=== PATIENT | male | born 2000 | race Caucasian/White ===

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

== ENCOUNTER → 2022-01-03 | Outpatient (CLI) | payer OTHER, SELFPAY | END | disposition home or self-care (01) | PROVIDERS: PCP Family Medicine; Visit Provider Family Medicine | DX: Z20.822 Contact with and (suspected) exposure to COVID-19 (principal) | CPT/HCPCS: 87635; U0003; U0005 ==

== ENCOUNTER 2022-07-12 08:30 | Outpatient (RCR) | payer OTHER, SELFPAY ==
--- NOTE | 2022-06-24 08:24 | HP.PTEVAL_ITS ---
Patient's Visit Information NANCY BAH is a 21 year old M referred to Physical Therapy by Dr. Cal Leonardo MD with a diagnosis of L shoulder pain. Date of Evaluation: 06/24/22 Physical Therapist: Anton Ulloa, PT, ATC - Visit Plan Frequency: 2-3x /Week Duration: 3-6 weeks Plan: L shoulder stretching, rot cuff strengthening, scap stab ex's, UBE, and HEP. - Subjective Pt reports he has had L shoulder pain for approximately one month. Pt reports he has been weight lifting and believes this may have caused his pain. Pt reports he is unaware of anything that provokes his pain. Pt notes he has sleep difficulty secondary to his L UE pain. Pt notes his arm will go to sleep on him at times and he has to shake it out in order for it to feel better. Pt is R hand dominant. Pt reports he has not had any Dx tests at this time. Pt denies any PMHx of L shoulder pain. Pt reports he usually sleeps on his back with his arms at his side. Pt reports if he rolls on his side, the pain will get worse. 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 3/10 pain while sitting here at rest, 6/10 pain at worst (when he wakes up in the morning). Pt does notes a Hx of c/s pain which he has now. - Pain L shoulder Pain Intensity (Out of 10): 3 Pain Intensity Range: 6 - Objective Neuro: B UE sensation is WNL to light touch. B bicipital reflex= 2/3. Palpation: Painful along the LHB tendon. No obvious deformity. ROM: R shoulder flex= 160, abd= 180, ER= 40, IR WNL; L shoulder flex= 145, abd= 180, ER= 25, IR= WNL. MMT: R shoulder flex= 19, abd= 27, ER= 20, IR= 18 #F ; L shoulder flex= 14, abd= 22, ER= 17, IR= 18 #F. Special tests: Pos HK, pos speeds - Balance/Special Test Scores Quick DASH Score: 22.7250 - Goals Goal 1:: Decrease L shoulder pain x 50% to aid with sleep Goal Time Frame: 4-6 Weeks Goal 2:: Increase L shoulder strength x 3-5#F throughout to aid with IADL's Goal Time Frame: 4-6 Weeks Goal 3:: Increase L shoulder flexion and ER ROM x 5-10 degrees to aid with overhead lifting activity Goal Time Frame: 4-6 Weeks Goal 4:: I with HEP Goal Time Frame: 4-6 Weeks - Rehabilitation Potential Physical Therapy Diagnosis: Pt has L shoulder pain, weakness, and limited ROM secondary to L biceps tendonitis Rehabilitation Potential: Good - Anticipated Interventions Patient/Client Instruction: Educate patient on: Condition, Plan of Care For the Purpose of:: To improve self management Therapeutic Exercise to Include: Strength training, Flexibilty training, Passive ROM, Active ROM, Scapular Strength/Stabilization For the Purpose of:: To decrease pain, To increase ROM, To improve muscle performance and motor function Cryotherapy (ice pack, ice massage): Yes For the Purpose of:: To decrease pain Thank you for the opportunity to evaluate your patient. For Medicare and Medicare HMO plans, please review the plan of care and approve it. It will need to be FAXED BACK to us at [phone] for Medicare purposes. For Medicare only, by signing this I certify the plan of care. Please let me know if there are questions or concerns regarding this plan of care. Physician Signature: Date:
== END 2022-07-12 19:00 | disposition home or self-care (01) ==
LOC: PT 08:30
PROVIDERS: PCP Family Medicine; Referring Provider Family Medicine; Visit Provider Family Medicine
DX: M25.512 Pain in left shoulder (principal)
CPT/HCPCS: 97110; 97161

== ENCOUNTER → 2022-07-28 | Outpatient (CLI) | payer OTHER, SELFPAY ==
[2022-07-28 11:34] LABS: ALB/GLOB Ratio 1.1 RATIO (0.9-2.4); AST(SGOT) 34 U/L (15-37); Alanine Aminotransfer ALT/SGPT 43 U/L (16-61); Albumin, Serum 3.9 g/dL (3.2-5.0); Alkaline Phosphatase 114 U/L (45-117); Anion Gap 4 (5-15); BUN 22 mg/dL (7-18); BUN/Creat Ratio 18.3 RATIO (10-20); CRP < 2.90 mg/L (0.0-3.0); Calcium,Total 8.9 mg/dL (8.5-10.1); Chloride 105 mmol/L (98-107); EST Glomerular Filtration Rate 82 mL/min (>60); Est Glom Filt Rate - Afr Amer 99 mL/min (>60); Globulin 3.4 g/dL (2.2-4.2); Glucose 95 mg/dL (74-106); Protein, Total 7.3 g/dL (6.4-8.2); Sodium Level 139 mmol/L (136-145)
[2022-07-28 11:39] LABS: Absolute Lymphocyte Count 1.18 X10^3/uL (0.83-4.51); Absolute Neutrophil Count 2.9 X10^3/uL (2.0-7.7); Basophil# 0.02 X10^3/uL; Basophil% 0.4 % (0-1); Eosinophil# 0.21 X10^3/uL; Eosinophils% 4.3 % (0-5); Hematocrit 43.1 % (40-54); Hemoglobin 14.8 g/dL (13.0-16.5); Lymphocyte # 1.18 X10^3/ul (0.83-4.51); Lymphocyte % 24.4 % (19-41); Mean Corp Hgb Conc 34.3 g/dL (32-36); Mean Corpuscular Hgb 30.2 pg (27.0-32.0); Mean Platelet Vol. 8.4 fl (6.2-12.0); Monocyte# 0.48 X10^3/uL; Monocyte% 9.9 % (0-10); NRBC Flagged by Analyzer 0 % (0-5); Neutrophil # 2.93 X10^3/uL (2.7-7.7); Neutrophil % 60.8 % (47-70); Platelet Count 287 K/mm3 (150-450); RBC Distribution Width CV 12.8 % (11.6-14.6); RBC Distribution Width SD 40.2 fl (35.1-43.9); White Blood Count 4.8 K/mm3 (4.4-11.0)
[2022-07-28 11:43] LABS: Erythrocyte Sedimentation Rate 9 mm/hr (0-20)
[2022-07-29 16:09] LABS: Endomysial Antibody IgA Negative (Negative)
[2022-07-29 20:31] LABS: Immunoglobulin A 239 mg/dL (90-386); t-Transglutaminase IgA <2 U/mL (0-3)
[2022-08-02 11:34] LABS: Calprotectin, Stool 38 ug/g (0-120)
== END | disposition home or self-care (01) ==
PROVIDERS: PCP Family Medicine; Referring Provider Nurse Practitioner Adult Health; Visit Provider Nurse Practitioner Adult Health
DX: K92.1 Melena (principal); K58.9 Irritable bowel syndrome, unspecified
CPT/HCPCS: 36415; 80053; 82784; 83516; 83630; 83993; 85025; 85652; 86140; 86255

== ENCOUNTER 2022-10-14 05:26 | Day surgery (SDC) | payer OTHER, SELFPAY ==
[2022-10-14] VITALS (10 sets, daily range): BP systolic 89–145; BP diastolic 37–79; PULSE 68–97; RESP 12–18; TEMP 36.6–37; O2SAT 97–100; BMI 28.4
[2022-10-14] MEDS: Lactated Ringers 1,000 ML 15 ML IV (05:57)
--- NOTE | 2022-10-14 06:30 | COLBX_PTH ---
PATIENT: NANCY BAH LOC: EN U#:[id number] AGE/SX: 22/M ROOM: RE10/14/[address]: Dr. Cristóbal Box DO : 2000 BED: DIS: 10/14/2022 SPEC #: [id number] RECD: 10/14/22 12:20 STATUS: PEDRO LUIS REQ #: [id number] JUAN: 10/14/22 06:[address]: Cristóbal Box DEPT: SURGICAL PATHOLOGY RECD BY: Magali Patel ENTERED: 10/14/22 12:20 SP TYPE: COLON BX OTHR DR: Dr. Cal Leonardo MD Tissues: Ileum, NOS Procedures: Surgery Specimen Level IV HEADER OPERATION: Colonoscopy (MAC), hemorrhoid banding PRE-OP DIAGNOSIS: Hemorrhoids, hematochezia TISSUE SUBMITTED: Terminal ileum MICROSCOPIC DIAGNOSIS Terminal ileum, biopsy: Fragments of small intestinal mucosa, no pathologic diagnosis. SJ:toi 10/17/2022 MICROSCOPIC DESCRIPTION Slides are reviewed. GROSS DESCRIPTION Received in fixative is one container labeled with the patient's name and designated terminal ileum. The specimen consists of two irregular fragments of light larsen soft tissue that in aggregate measure 0.8 x 0.4 x 0.1 cm. The specimen is totally submitted in one cassette. / NICK:toi 10/14/2022 TC:4 CPT: 78861
--- NOTE | 2022-10-14 06:34 | PCM.HP.BLA ---
History and Physical Date of Admission: 10/14/22 22 M who presents to the office today to establish for hematochezia. Pt and his father state here for hemorrhoids Began in 03/2022, red blood on toilet paper, in toilet bowl and mixed with stool, was straining at the onset. Daily BM. Occas tenesmus. Preparation H helped initially feels external hemorrhoids has blood in toilet with BMs weight lifting and body building No constipation, no abdominal pain Intentional weight loss of 90 lbs 1.5 yrs ago. 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 Uses protein powder. Gassy. bloating Avoids milk, processed cheeses or gets diarrhea. Great-grandfather had colon cancer age 88. 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 138) Smoking Status: Never smoker Assessment and Plan Assessment and Plan (1) Hemorrhoids: (2) Hematochezia: ?Status:?Chronic ? ? ? Orders: Orders Comprehensive Metabolic Profil 07/28/22 K92.1 - Melena ? CRP 07/28/22 K92.1 - Melena ? CBC W/Diff, Automated 07/28/22 K92.1 - Melena ? Erythrocyte Sed Rate 07/28/22 K92.1 - Melena ? Calprotectin, Stool 07/28/22 K92.1 - Melena ? Stool Lactoferrin/WBC 07/28/22 K58.9 - Irritable bowel syndrome without diarrhea, K92.1 - Melena ? Celiac Disease Profile 07/28/22 K92.1 - Melena ? Miscellaneous Lab Procedure 07/28/22 K92.1 - Melena ? Colonoscopy 10/14/22 K92.1 - Melena ? I have examined the patient and the H&P has been reviewed. There are no clinical changes since date of exam.
--- NOTE | 2022-10-14 07:11 | OP.COLON_ITS ---
Patient Name: Ivan Barros Procedure Date: 10/14/2022 6:20 AM Date of : 2000 Age: 22 Procedure: Colonoscopy Indications: Hematochezia Providers: Cristóbal Box DO Referring MD: Cristóbal Box DO Medicines: Monitored Anesthesia Care Patient Profile: This is a 22 year old male. Refer to note in patient chart for documentation of history and physical. Last Colonoscopy: none. The patient's first colonoscopy is today. Complications: No immediate complications. Procedure: Pre-Anesthesia Assessment: - Prior to the procedure, a History and Physical was performed, and patient medications and allergies were reviewed. The patient is competent. The risks and benefits of the procedure and the sedation options and risks were discussed with the patient. All questions were answered and informed consent was obtained. Patient identification and proposed procedure were verified by the physician in the pre-procedure area. Mental Status Examination: alert and oriented. Airway Examination: normal oropharyngeal airway and neck mobility. CV Examination: normal. Prophylactic Antibiotics: The patient does not require prophylactic antibiotics. Prior Anticoagulants: The patient has taken no previous anticoagulant or antiplatelet agents. After reviewing the risks and benefits, the patient was deemed in satisfactory condition to undergo the procedure. The anesthesia plan was to use monitored anesthesia care (MAC). Immediately prior to administration of medications, the patient was re-assessed for adequacy to receive sedatives. The heart rate, respiratory rate, oxygen saturations, blood pressure, adequacy of pulmonary ventilation, and response to care were monitored throughout the procedure. The physical status of the patient was re-assessed after the procedure. After I obtained informed consent, the scope was passed under direct vision. Throughout the procedure, the patient's blood pressure, pulse, and oxygen saturations were monitored continuously. The Colonoscope was introduced through the anus and advanced to the terminal ileum. The colonoscopy was performed without difficulty. The patient tolerated the procedure well. The quality of the bowel preparation was good. Scope In: 6:41:02 AM Scope Withdrawal Time 0 hours 8 minutes 58 seconds Scope Out: 6:56:39 AM Total Procedure Duration Time 0 hours 15 minutes 37 seconds Findings: An anal fissure was found on perianal exam. Hemorrhoids were found on perianal exam. The colon (entire examined portion) appeared normal. A scattered area of the terminal ileum was congested. Biopsies were taken with a cold forceps for histology. Verification of patient identification for the specimen was done. Estimated blood loss was minimal. Non-bleeding internal hemorrhoids were found during retroflexion. The hemorrhoids were Grade II (internal hemorrhoids that prolapse but reduce spontaneously). A hemorrhoid was isolated with anoscopy. The ShortShot ligator was positioned over the hemorrhoid at the left lateral position. Suction was applied and one rubber band was placed over the hemorrhoid. This was checked to make certain that the muscularis was free of the band. Post-banding digital rectal exam showed band in good position. There were no complications. Impression: - Anal fissure found on perianal exam. - Hemorrhoids found on perianal exam. - The entire examined colon is normal. - Congested mucosa in the terminal ileum. Biopsied. - Non-bleeding internal hemorrhoids. Banded. Recommendation: - Use Metamucil capsules, 1 capsule PO daily. - Repeat colonoscopy is recommended for surveillance. The colonoscopy date will be determined after pathology results from today's exam become available for review. - Continue present medications. Procedure Code(s): --- Professional --- 45234, Colonoscopy, flexible; with band ligation(s) (eg, hemorrhoids) 67987, Colonoscopy, flexible; with biopsy, single or multiple CPT copyright 2017 [employer]. All rights reserved. The codes documented in this report are preliminary and upon surgical coder review may be revised to meet current compliance requirements. Cristóbal Box DO 10/14/2022 7:10:34 AM This report has been signed electronically. Number of Addenda: 0 Note Initiated On: 10/14/2022 6:20 AM
--- NOTE | 2022-10-14 07:12 | OP.CCLET_ITS ---
10/14/2022 Cal Leonardo MD [address] [place] [address] Re : Colonoscopy procedure for [facility] Dear Dr. Leonardo This procedure was performed on Friday, October 14, 2022. My impressions and recommendations are as follows: Impressions : - Anal fissure found on perianal exam. - Hemorrhoids found on perianal exam. - The entire examined colon is normal. - Congested mucosa in the terminal ileum. Biopsied. - Non-bleeding internal hemorrhoids. Banded. Recommendations : - Use Metamucil capsules, 1 capsule PO daily. - Repeat colonoscopy is recommended for surveillance. The colonoscopy date will be determined after pathology results from today's exam become available for review. - Continue present medications. My findings are described in the full procedure note, which is enclosed. If I can be of further assistance, please feel free to contact me at . Sincerely, Cristóbal Box, 10/14/2022 7:10:34 AM This report has been signed electronically.
== END 2022-10-14 08:20 | disposition home or self-care (01) ==
LOC: EN 05:29 → AC 05:29
PROVIDERS: PCP Family Medicine; Referring Provider Internal Medicine Gastroenterology; Visit Provider Internal Medicine Gastroenterology
PROC: 0DJD8ZZ Inspection of Lower Intestinal Tract, Via Natural or Artificial Opening Endoscopic (ICD-10-PCS; CPT 45378; principal; 2022-10-14 06:25)
DX: K64.1 Second degree hemorrhoids (principal); K60.2 Anal fissure, unspecified; K92.1 Melena
CPT/HCPCS: 45380; 45398; 88305; J7120; J2405

== ENCOUNTER → 2022-12-23 | Outpatient (CLI) | payer OTHER, SELFPAY ==
[2022-12-23 17:58] LABS: Absolute Lymphocyte Count 1.13 X10^3/uL (0.83-4.51); Absolute Neutrophil Count 6.7 X10^3/uL (2.0-7.7); Basophil# 0.03 X10^3/uL; Basophil% 0.4 % (0-1); Eosinophil# 0.08 X10^3/uL; Eosinophils% 0.9 % (0-5); Hematocrit 48.6 % (40-54); Hemoglobin 16.3 g/dL (13.0-16.5); Lymphocyte # 1.13 X10^3/ul (0.83-4.51); Lymphocyte % 13.2 % (19-41); Mean Corp Hgb Conc 33.5 g/dL (32-36); Mean Corpuscular Hgb 29.5 pg (27.0-32.0); NRBC Flagged by Analyzer 0 % (0-5); Neutrophil # 6.69 X10^3/uL (2.7-7.7); Neutrophil % 78.3 % (47-70); Platelet Count 283 K/mm3 (150-450); RBC Distribution Width CV 13.4 % (11.6-14.6); RBC Distribution Width SD 43.4 fl (35.1-43.9); Red Blood Count 5.52 M/mm3 (4.6-6.2); White Blood Count 8.6 K/mm3 (4.4-11.0)
[2022-12-23 18:05] LABS: PSA,Total- Diagnostic 0.28 ng/mL (0.0-4.0)
== END | disposition home or self-care (01) ==
LOC: MFPLAB 14:12
PROVIDERS: PCP Family Medicine; Visit Provider Family Medicine
DX: F55.3 Abuse of steroids or hormones (principal)
CPT/HCPCS: 36415; 84153; 84402; 84403; 85025

== ENCOUNTER 2023-05-02 20:19 | Emergency (ER) | payer OTHER, SELFPAY ==
[2023-05-02 20:19] VITALS: BP 146/62; PULSE 101; RESP 16; TEMP 36.9; O2SAT 100
[2023-05-02 20:21] VITALS: BMI 28.8
--- NOTE | 2023-05-02 20:26 | ED.RN ---
While triaging pt, pt grandfather heard that pt was doing steroids. Pt grandfather states that he is legal power of managing attorney and is on a signed list to be with the patient. Pt verifies that he is legal guardian.
[2023-05-02 20:31] VITALS: BP 136/62; PULSE 95; RESP 16; O2SAT 97
--- NOTE | 2023-05-02 20:34 | ED.RN ---
While triaging pt, grandfather is in room. Grandfather aggressive with pt about illegal steroid use. This nurse requested that grandfather keep calm, grandfather continues to antagonize pt about steroid use and how he is getting them. Informed grandfather he would not be allowed back with pt while in this state.grandfather reports that he is legal guardian and has a signed letter from Dr. Leonardo that he is supposed to be with pt at all times. Verified with pt that he is legal guardian and also informed pt he would not be allowed back and reason why. Grandfather states he is calling police to allow him back. Grandfather then went to waiting room to make a phone call, talking loudly and aggressively. He then begins to tell this nurse that you need to call Misa and see who has cared for him since he has been born. Twice asked grandfather to please sit and try to calm self, attempted to voice understanding and frustration, and explained why he could not be with patient in current state. He then repeatedly asks for this nurse to page Dr. Scanlon, explained reason why it was not appropriate to page him for this, he then states you need to call him for when I keel over because I am so mad. Advised grandfather that if he did in fact have an emergency he would be treated as appropriate. He then walks outside, stating he may or may not cool off. Officer Jose then comes to triage desk, explained situation to Officer Jose and Officer Jose spoke with grandfather outside. Explained to grandfather that if he is able to be in a calm state he would be allowed back with patient.
--- NOTE | 2023-05-02 20:49 | EX.ED.DYSGE1 ---
HPI History of Present Illness Chief Complaint: General Illness Informant: patient and spouse/S.O. Narrative Narrative: Patient presents secondary to fever, body aches, and anabolic steroid use. He reportedly had tapered himself off of his prescribed medications and has been taking anabolic steroids for the past 5 weeks or so. He was taking Anadrol 50 mg tabs twice daily. His last dose was 2 days ago. He states he was told while he was on that medication he did not take his other prescriptions and should not take any pain medication. Today he took some Tylenol and felt worse after this and was concerned about his liver. He was noted to have a temperature of 101.3 at home. He has had some congestion with sinus pressure and a mild cough as well. He denies vomiting or diarrhea. [facility] Medical History Adenopathy, hilar ADHD Alcohol use Anxiety Asthma Back pain Chronic pain Cystic fibrosis carrier Depression Enuresis Hematochezia Hx of bipolar disorder Injury of head and neck Loss of consciousness Mood disorder Non-smoker Shoulder pain Home Medications albuterol sulfate 90 mcg/actuation aerosol inhaler 2 puff inhalation Q4H PRN PRN Bronchospasm 08/21/21 [History Last Taken Unknown] bupropion HCl 150 mg 24 hr tablet, extended release 150 mg PO DAILY 08/21/21 [History Last Taken 10/14/22 150 mg] dexmethylphenidate 10 mg tablet 20 mg PO DAILY 08/21/21 [History Last Taken 10/14/22 20 mg] guanfacine 3 mg tablet,extended release 24 hr 3 mg PO DAILY 08/21/21 [History Last Taken Unknown] risperidone 1 mg tablet 1 mg PO BID 08/21/21 [History Last Taken 10/14/22 1 mg] imipramine HCl 25 mg tablet 25 mg PO QHS 04/28/22 [History Last Taken Unknown] apple cider vinegar 600 mg capsule 600 mg PO DAILY 10/11/22 [History Last Taken Unknown] fluticasone propionate 110 mcg/actuation HFA aerosol inhaler (Flovent HFA) 1 puff inhalation BID 10/11/22 [History Last Taken Unknown] niacin 500 mg capsule 500 mg PO BID 10/11/22 [History Last Taken Unknown] vitamin E 400 unit tablet 45 mg PO DAILY 10/11/22 [History Last Taken Unknown] Allergy/AdvReac Type Severity Reaction Status Date / Time No Known Allergies Allergy Verified 05/02/23 20:19 Family History Grandfather Hypertension Arthritis Grandmother Cancer Arthritis Surgical History Hx of wisdom tooth extraction Social History current occupational status: student Smoking Status: Never smoker alcohol intake: never ROS ROS ED Constitutional Constitutional ED: Reports fever(s); Denies chills Eyes Eyes: Denies change in vision or discharge from eye(s) ENT ENT ED: Reports other Details: Sinus pressure ; Denies discharge from eye(s), rhinorrhea or sore throat Cardiovascular Cardiovascular: Denies chest pain or palpitations Respiratory/Chest Respiratory/Chest: Reports cough; Denies dyspnea Gastrointestinal Gastrointestinal: Reports nausea; Denies abdominal pain, diarrhea or vomiting Genitourinary Genitourinary ED: Denies difficulty urinating or dysuria Musculoskeletal Musculoskeletal: Denies back pain or extremity pain Integumentary Denies Abrasions or rash Neurologic Neurologic: Reports headache(s); Denies weakness Psychiatric Psychiatric: Denies anxiety or depression Allergic/Immunologic Allergic/Immunologic ED: Denies lip swelling or urticaria EXAM Physical Exam Const Vital Signs: 05/02/23 20:19 05/02/23 20:26 05/02/23 20:31 Temperature 98.5 F Temperature Source Temporal Pulse Rate 101 H 95 Respiratory Rate 16 16 Respiratory Effort Non-Labored Respiratory Pattern Normal Blood Pressure 146/62 H 136/62 H Blood Pressure Mean 90 86 Pulse Ox 100 97 Oxygen Delivery Method Room Air 05/02/23 21:35 Temperature Temperature Source Pulse Rate 79 Respiratory Rate 17 Respiratory Effort Respiratory Pattern Blood Pressure 145/124 H Blood Pressure Mean 131 Pulse Ox 97 Oxygen Delivery Method Room Air Positive well nourished and well developed General Appearance ED: well developed HEENT Reports normocephalic and head/scalp atraumatic Eyes PERRL and EOMs intact bilaterally Neck supple Chest Wall inspection of chest normal and palpation of chest normal Resp normal respiratory effort and clear to auscultation bilaterally Cardio regular rate and regular rhythm GI GI Narrative: Abdomen soft with mild epigastric tenderness. No guarding or rebound. Palpation: soft Extremity normal to inspection Neuro oriented x3 and no sensory deficits noted Sensorium / Orientation: alert Motor Exam: strength 5/5 throughout Psych mental status grossly normal Skin no rashes or lesions noted MDM MDM MDM Narrative Medical decision making narrative: Patient placed on cardiac catheterization technologist. EKG obtained to evaluate for cardiac arrhythmia/ischemia. Chest x-ray obtained to evaluate for acute lung pathology, cardiac size, or mediastinal abnormality. Labwork obtained to evaluate for leukocytosis, anemia, and electrolyte derangement. Patient given Toradol and Zofran along with IV fluids. Swab for COVID and influenza obtained. History & Record Review Discussion w/independent historian: Patient Lab Data Attestation: I reviewed the patient's lab results. Labs: Laboratory Results - last 24 hr 05/02/23 21:05 WBC 3.8 L RBC 4.69 Hgb 13.9 Hct 41.7 MCV 88.9 MCH 29.6 MCHC 33.3 RDW Std Deviation 39.0 RDW Coeff of Dasia 12.0 Plt Count 197 MPV 8.4 Immature Gran % (Auto) 0.300 Neut % (Auto) 59.3 Lymph % (Auto) 24.4 Addison % (Auto) 13.4 H Eos % (Auto) 1.8 Baso % (Auto) 0.8 Absolute Neuts (auto) 2.3 Absolute Lymphs (auto) 0.93 Nucleated RBC % 0 Differential Comment SCANNED Sodium 138 Potassium 3.5 Chloride 102 Carbon Dioxide 31.0 Anion Gap 5 BUN 15 Creatinine 1.20 Estim Creat Clear Calc 107.78 Est GFR (MDRD) Af Amer 98 Est GFR (MDRD) Non-Af 81 BUN/Creatinine Ratio 12.5 Glucose 109 H Calcium 8.6 Total Bilirubin 0.30 Direct Bilirubin 0.11 AST 47 H ALT 76 H Alkaline Phosphatase 58 Total Protein 7.2 Albumin 3.3 Globulin 3.9 Lipase 29 Radiography Chest X-Ray - ED: 1 View, Read by ED Physician, Normal, Heart, Lungs and Mediastinum Diagnostic Testing: Clinical Impression(s) from Imaging Studies Chest X-Ray 05/02/23 20:50 IMPRESSION: No radiographic evidence of acute cardiopulmonary disease. Electronically Signed: Medhat Mason MD at 21:05 EDT , EKG Initial EKG: Attestation: I personally reviewed and interpreted this EKG as follows: Interpretation: Sinus Rhythm (Sinus 85 with no acute ischemia.) Treatment and Re-Evaluation :: CBC was low white count 3.8. Hemoglobin is 13.9. Chemistry studies reveal a creatinine 1.20. Glucose is 109. AST is 47 and ALT is 76. His ALT was elevated 3 years ago but had returned to normal on labs obtained earlier this year. EKG is sinus with no acute ischemia. No arrhythmias noted on cardiac catheterization technologist. Chest x-ray is unremarkable per my interpretation as well as radiology. Swab for COVID and influenza is obtained and negative. On repeat evaluation patient's headache is improved with Tylenol and Zofran. I feel he likely has a viral syndrome and is likely unrelated to his steroid use. That being said he will no longer take any steroids and will get back on his regular home meds. The dosing of the Anadrol patient took is not out of ordinary for his body weight. Discharge Plan Triage Chief Complaint: General Illness ED Provider: Noelle Brand Dx/Rx/DC Orders Clinical Impression: Viral syndrome, History of anabolic steroid use Instructions: ED Viral Syndrome (Adult) Prescriptions: No Action imipramine HCl 25 mg tablet 25 mg PO QHS dexmethylphenidate 10 mg tablet 20 mg PO DAILY Patient Comments: 1 tablet by mouth once a day albuterol sulfate 90 mcg/actuation HFA aerosol inhaler 2 puff INHALATION Q4H PRN PRN (Reason: Bronchospasm) Patient Comments: INHALE 2 PUFFS EVERY 4 HOURS NEEDED risperidone 1 mg tablet 1 mg PO BID Patient Comments: TAKE 1 TABLET BY MOUTH TWICE A DAY bupropion HCl 150 mg tablet extended release 24 hr 150 mg PO DAILY Patient Comments: TAKE 1 TABLET BY MOUTH EVERY DAY IN THE MORNING guanfacine 3 mg tablet extended release 24 hr 3 mg PO DAILY Patient Comments: TAKE 1 TABLET BY MOUTH EVERY EVENING TAKE AT DINNER apple cider vinegar 600 mg Capsule 600 mg PO DAILY vitamin E 400 unit Tablet 45 mg PO DAILY niacin 500 mg Capsule 500 mg PO BID fluticasone propionate [Flovent HFA] 110 mcg/actuation Hfa Aerosol Inhaler 1 puff INHALATION BID Primary Care Provider: Cal Leonardo Referrals: Cal Leonardo MD [Primary Care Provider] - 1-2 Weeks Disposition Disposition: Home, Self Care
--- NOTE | 2023-05-02 20:50 | RAD_ITS ---
EXAM: XR CHEST, 1 VIEW CLINICAL INDICATION: cough TECHNIQUE: Frontal view of the chest. COMPARISON: 10/01/2020 FINDINGS: LUNGS AND PLEURAL SPACES: Unremarkable. No consolidation or edema. No pneumothorax. No effusion. HEART: Unremarkable. Cardiac silhouette not enlarged. MEDIASTINUM: Central airways and mediastinal contour are unremarkable. BONES/JOINTS: Unremarkable. SOFT TISSUES: Unremarkable. RAD/Chest 1 View (Portable) IMPRESSION: No radiographic evidence of acute cardiopulmonary disease. Electronically Signed: Medhat Mason MD at 21:05 EDT ,
[2023-05-02] MEDS: Ondansetron 4 MG/2 ML Vial IV (21:07)
[2023-05-02] MEDS: Ketorolac 30 MG/ML Syringe IV (21:08)
--- NOTE | 2023-05-02 21:08 | ED.RN ---
Pt grandfather returned to triage from being outside, apologized to nurse for behavior.
[2023-05-02] MEDS: 0.9% Normal Saline (1000mL) 1,000 ML 1000 ML IV (21:10)
[2023-05-02 21:12] LABS: Absolute Lymphocyte Count 0.93 X10^3/uL (0.83-4.51); Absolute Neutrophil Count 2.3 X10^3/uL (2.0-7.7); Basophil# 0.03 X10^3/uL; Basophil% 0.8 % (0-1); Eosinophil# 0.07 X10^3/uL; Eosinophils% 1.8 % (0-5); Hematocrit 41.7 % (40-54); Hemoglobin 13.9 g/dL (13.0-16.5); Lymphocyte # 0.93 X10^3/ul (0.83-4.51); Lymphocyte % 24.4 % (19-41); Mean Corp Hgb Conc 33.3 g/dL (32-36); Mean Corpuscular Hgb 29.6 pg (27.0-32.0); Mean Corpuscular Volume 88.9 fL (80-94); Mean Platelet Vol. 8.4 fl (6.2-12.0); Monocyte# 0.51 X10^3/uL; Monocyte% 13.4 % (0-10); NRBC Flagged by Analyzer 0 % (0-5); Neutrophil # 2.26 X10^3/uL (2.7-7.7); Neutrophil % 59.3 % (47-70); POSITIVE MORPHOLOGY YES; Platelet Count 197 K/mm3 (150-450); Red Blood Count 4.69 M/mm3 (4.6-6.2); White Blood Count 3.8 K/mm3 (4.4-11.0)
[2023-05-02 21:17] LABS: Differential Indicated SCAN CRITERIA MET
[2023-05-02 21:29] LABS: Differential Comment SCANNED
[2023-05-02 21:33] LABS: AST(SGOT) 47 U/L (15-37); Alanine Aminotransfer ALT/SGPT 76 U/L (16-61); Albumin, Serum 3.3 g/dL (3.2-5.0); Alkaline Phosphatase 58 U/L (45-117); Anion Gap 5 (5-15); BUN 15 mg/dL (7-18); BUN/Creat Ratio 12.5 RATIO (10-20); Bilirubin, Direct 0.11 mg/dL (0.00-0.30); Calcium,Total 8.6 mg/dL (8.5-10.1); Chloride 102 mmol/L (98-107); EST Glomerular Filtration Rate 81 mL/min (>60); Est Glom Filt Rate - Afr Amer 98 mL/min (>60); Estimated Creatinine Clearance 107.78 ml/min; Globulin 3.9 g/dL (2.2-4.2); Glucose 109 mg/dL (74-106); Lipase 29 U/L (13-75); Potassium 3.5 mmol/L (3.5-5.1); Protein, Total 7.2 g/dL (6.4-8.2); Sodium Level 138 mmol/L (136-145)
[2023-05-02 21:35] VITALS: BP 145/124; PULSE 79; RESP 17; O2SAT 97
[2023-05-02 22:45] VITALS: BP 105/57; PULSE 65; RESP 15; O2SAT 98
== END 2023-05-02 22:46 | disposition home or self-care (01) ==
PROVIDERS: Emergency Provider Emergency Medicine; PCP Family Medicine; Visit Provider Emergency Medicine
DX: B34.9 Viral infection, unspecified (principal); F31.9 Bipolar disorder, unspecified; Z79.52 Long term (current) use of systemic steroids; J45.909 Unspecified asthma, uncomplicated; Z79.899 Other long term (current) drug therapy; F90.9 Attention-deficit hyperactivity disorder, unspecified type; Z79.51 Long term (current) use of inhaled steroids; R51.9 Headache, unspecified
CPT/HCPCS: 71045; 80048; 80076; 83690; 85025; 87428; 93005; 96361; 96374; 96375; 99284; J7030; A4216; J2405

== ENCOUNTER → 2023-05-17 | Outpatient (CLI) | payer OTHER, SELFPAY | END | disposition home or self-care (01) | LOC: MFPLAB 09:24 | PROVIDERS: PCP Family Medicine; Visit Provider Family Medicine | DX: J02.9 Acute pharyngitis, unspecified (principal) | CPT/HCPCS: 36415; 86664; 86665 ==

== ENCOUNTER → 2023-08-16 | Outpatient (CLI) | payer OTHER, SELFPAY ==
[2023-08-16 10:01] LABS: Absolute Lymphocyte Count 1.66 X10^3/uL (0.83-4.51); Absolute Neutrophil Count 2.3 X10^3/uL (2.0-7.7); Basophil# 0.03 X10^3/uL; Basophil% 0.7 % (0-1); Eosinophil# 0.12 X10^3/uL; Eosinophils% 2.8 % (0-5); Hematocrit 47.1 % (40-54); Hemoglobin 15.9 g/dL (13.0-16.5); Lymphocyte # 1.66 X10^3/ul (0.83-4.51); Lymphocyte % 38.2 % (19-41); Mean Corp Hgb Conc 33.8 g/dL (32-36); Mean Corpuscular Hgb 28.8 pg (27.0-32.0); Mean Corpuscular Volume 85.2 fL (80-94); Mean Platelet Vol. 9.1 fl (6.2-12.0); Monocyte# 0.27 X10^3/uL; Monocyte% 6.2 % (0-10); NRBC Flagged by Analyzer 0 % (0-5); Neutrophil # 2.25 X10^3/uL (2.7-7.7); Neutrophil % 51.9 % (47-70); Platelet Count 216 K/mm3 (150-450); RBC Distribution Width CV 13.7 % (11.6-14.6); RBC Distribution Width SD 42.3 fl (35.1-43.9); Red Blood Count 5.53 M/mm3 (4.6-6.2); White Blood Count 4.3 K/mm3 (4.4-11.0)
--- OUTSIDE RECORDS SUMMARY | 2023-08-16 10:24 | XMS RPT_ITS | CCD ---
Author Name Unknown Address [facility] [place] [address] Organization [facility] Care Team Providers Care Cell Tuber Machine Name Role Phone ANITA PARRISH Unavailable Unavailable SELF, REFERRED Unavailable Unavailable [facility] Un available Unavailable NBA ROSALES Attending Unavailable Problems Problem Classification Problem Date Documented Da te Episodic/Chronic Open wounds of extremities (2 sources) Laceration without foreign body of unspecified finger without damage to nail, initial encounter; Translations: [Laceration without foreign body of unspecified finger without damage to nail, initial encounter] Onset: 06-02-2022 Episodic Results Test Name Value Interpretation Reference Range Facil ity Encounters Encounter Date Encounter Type Care Provider Facility Start: 06-02-2022 End: 06-02-2022 Emergency department patient visit NBA ROSALES [facility] Start: 06-29-2017 End: 06-29-2017 Ambulatory ANITA VILLATORO [facility] Payers Date Payer Category Payer Private Health Insurance [id number] Unknown [id number] Progress note 04-23-2021 Note Date & Type Note Facility 04-23-2021 Note HNO ID: [id number] Author: Alem Sheth RN Service: ? Author Type: ? Type: Progress Notes Filed: 04/23/2021 11:45 AM Note Text: Post Void Residual completed on patient. 35 mL residual volume remaining. Yosef Nugent PA-C notified. Alem Sheth RN [facility] Progress note 04-23-2021 Note Date & Type Note Facility 04-23-2021 Note HNO ID: [id number] Author: Yosef Nugent PA-C Service: ? Author Type: Physician Customer Sales Advisor Type: Progress Notes Filed: 04/23/2021 11:45 AM Note Text: PATIENT INFO: Ivan Bah 20 year old ( ) REFERRING PROVIDER: Self PCP: No primary care provider on file. April 23, 2021 HPI: Ivan Bah 20 year old male is here today for concerns regarding the reoccurrence of Enuresis that has not been a problem since he was 12-13 yo Until 3 weeks ago when it stared happening again, no specific events that he can recall except there was an recent change is his Wellbutrin dose He feels he is sleeping deeply and then does not wake up to the urge of urination and then incontinence We could try small dose of Ditropan to slow the bladder pressure , but this could work against him as well. So I recommend discussing the SSRI dosing And possible psychological Causes of the this change LUTS: Obstructive - weak stream: no, hesitancy: no, Intermittency: no, Double voiding no post-void dribbling: no incomplete emptying: no Irritative - NTF no Urgency no Frequency no Dysuria no Incontinence yes Gross Hematuria no Microscopic Hematuria ( 2 of 3 UA w/Micro showed 3-5 RBC's) no Other symptoms: LABS: No results found for: TESTOST No results found for: TESTFREE No results found for: PSA No results found for: HCT MEDICATIONS: buPROPion XL (WELLBUTRIN XL) 300 mg 24 hr tablet Take 300 mg by mouth once daily. risperiDONE (RISPERDAL) 1 mg tablet Take 1 mg by mouth twice daily. guanFACINE (INTUNIV ER) 3 mg Tb24 Take 3 mg by mouth once daily. dexmethylphenidate (FOCALIN XR) 10 mg MP50 Capsule ER Take 20 mg by mouth once daily. ALBUTEROL SULFATE 0.083 % SOLN FOR INHALATION as necessary Dexmethylphenidate (FOCALIN XR) 5 mg ORAL MP50 Dexmethylphenidate HCl (FOCALIN) 2.5 mg ORAL tablet aripiprazole 2 mg ORAL tablet PAST MEDICAL HISTORY: PAST MEDICAL HISTORY Diagnosis Date - Back injury - Bipolar 1 disorder (HCC) PAST SURGICAL HISTORY: History reviewed. No pertinent surgical history. FAMILY HISTORY: FAMILY HISTORY Problem Relation Age of Onset - Hypertension Paternal Grandfather SOCIAL HISTORY: Social Connections: ? ? Frequency of Communication with Friends and Family: ? ? Frequency of Social Gatherings with Friends and Family: ? ? Attends Rastafarian Services: ? ? Active Member of Clubs or Organizations: ? ? Attends Club or Organization Meetings: ? ? Marital Status: REVIEW OF SYSTEMS: GENERAL: No fever, chills, weight loss, or fatigue. ENMT: Negative CARDIOVASCULAR:NO CHEST PAIN, PALPITATIONS, ANKLE EDEMA RESPIRATORY: No chronic cough, wheezing, dyspnea, hemoptysis. GENITOURINARY: SEE HPI MUSCULOSKELETAL:NO CHRONIC BACK PAIN, ARTHRITIS, CHRONIC NECK PAIN SKIN: NO VARICOSE VEINS, RASH, ABNORMAL ITCHING HEME/LYMPH/IMMUNE:Negative for prolonged bleeding, bruising easily or swollen nodes NEUROLOGICAL: NO HEADACHES, NUMBNESS, SEIZURES, STROKE DIABETES: No All other systems reviewed and are negative PHYSICAL EXAMINATION: There were no vitals taken for this visit. GENERAL: WNL nutrition, no deformities, healthy appearing NEURO: Awake, alert and oriented x 3 and Normal gait PSYCH: No signs of depression, anxiety, or agitation ENMT (Ear, Nose, Mouth, Throat): No masses, adenopathy, icterus. Thyroid nonpalpable RESP: NL effort, no retractions or purse-lip breathing. CV: No extremity swelling, varices, edema, pallor, erythema GASTROINTESTINAL: Soft, nontender, nondistended, no masses. HERNIAS: None SKIN: No rash, lesions No palpable lymphadenopathy MUSCULOSKELETAL: Extremities normal. No deformities, edema, clubbing or skin discoloration. PROBLEM LIST REVIEW: Yes LABS: Results for orders placed or performed in visit on 04/23/21 UA DIP, URINE (POC) Result Value Ref Range GLUCOSE UA (POCT) Negative Negative mg/dL BILIRUBIN UA (POCT) Negative Negative KETONE UA (POCT) Negative Negative mg/dL SPECIFIC GRAVITY UA (POCT) >=1.030 1.005 - 1.030 HEMOGLOBIN/BLOOD UA (POCT) Negative Negative PH UA (POCT) 5.5 4.5 - 8.0 PROTEIN UA (POCT) Negative Negative mg/dL UROBILINOGEN UA (POCT) 0.2 Normal E.U./dL NITRITE UA (POCT) Negative Negative LEUKOCYTES UA (POCT) Negative Negative COLOR UA (POCT) Yellow CLARITY UA (POCT) Clear PROCEDURES: PVR: 35 ml IMAGING: IMPRESSION/PLAN: 1. Enuresis - starting to happen again , for the 3 weeks > UA - normal > Voiding prior to bed 2. Follow up with his psychologist about medication I spent a total of 30 minutes on the date of the service which included preparing to see the patient, face to face patient care, completing clinical documentation, obtaining and/or reviewing separately obtained history, performing a medically appropriate examination, counseling and educating the patient/family/caregiver, ordering medications, tests, or procedures, and care coordinatio (more content not included)... [facility] Summary Purpose Family History No Family History Records FoundNo Family History Records FoundNo Family History Records Found Advance Directives No Advanced Directives Records FoundNo Advanced Directives Records FoundNo Advanced Directives Records Found Additional Source Comments (unrecognized sect ion and content) No Status Records FoundNo Status Records FoundNo Status Records Found INFORMATION SOURCE (unrecogn ized section and content) DATE CREATED AUTHOR AUTHOR'S ORGANIZ ATION 08/30/2021 [facility] DATE CREATED AUTHOR AUTHOR'S ORGANIZ ATION 06/02/2022 [facility] FOR RECORDS PERTAINING TO PATIENTS WHO ARE OR HAVE BEEN ENROLLED IN A CHEMICAL DEPENDENCY/SUBSTANCEABUSE PROGRAM, SOME INFORMATION MAY BE OMITTED. This clinical summary was aggregated from multiple sources. Caution should be exercised in using it in the provision of clinical care. This summary normalizes information from multiple sources, and as a consequence, information in this document may materially change the coding, format and clinical context of patient data. In addition, data may be omitted in some cases. CLINICAL DECISIONS SHOULD BE BASED ON THE PRIMARY CLINICAL RECORDS. [employer] [facility]. provides no warranty or guarantee of the accuracy or completeness of information in this document.
[2023-08-16 11:53] LABS: Anion Gap 3 (5-15); BUN 15 mg/dL (7-18); BUN/Creat Ratio 11.4 RATIO (10-20); Calcium,Total 9.2 mg/dL (8.5-10.1); Chloride 105 mmol/L (98-107); Cholesterol 101 mg/dL (200); Creatinine, Serum 1.32 mg/dL (0.70-1.30); EST Glomerular Filtration Rate 73 mL/min (>60); Est Glom Filt Rate - Afr Amer 88 mL/min (>60); Glucose 96 mg/dL (74-106); High Density Lipoprotein 55 mg/dL; Sodium Level 136 mmol/L (136-145); Triglycerides 36 mg/dL; Very Low Density Lipoprotein 7 mg/dL (5-40)
[2023-08-16 17:19] LABS: Prolactin 20.9 ng/mL
[2023-08-24 00:06] LABS: Estrogen, Total, Serum 105 pg/mL (56-213)
== END | disposition home or self-care (01) ==
LOC: MFPLAB 09:15
PROVIDERS: PCP Family Medicine; Visit Provider Family Medicine
DX: Z00.00 Encounter for general adult medical examination without abnormal findings (principal); N64.52 Nipple discharge; F55.3 Abuse of steroids or hormones
CPT/HCPCS: 36415; 80048; 80061; 82672; 84146; 84403; 85025

== ENCOUNTER → 2023-08-31 | Outpatient (CLI) | payer OTHER, SELFPAY ==
--- NOTE | 2023-08-31 09:32 | US_ITS ---
STUDY: ULTRASOUND BREAST - RIGHT REASON FOR EXAM: Male, 23 years old. Gynecomastia. TECHNIQUE: Axial and longitudinal images of the RIGHT breast were performed with a high resolution ultrasound transducer. # OF IMAGES: 29 COMPARISON: Comparison is made with prior mammogram done earlier today. FINDINGS: RIGHT Breast: A small amount of fibroglandular tissue is seen in the retroareolar region bilaterally slightly more prominent on the right side. Findings suggestive of a bilateral gynecomastia. US/Breast Limited Unilateral IMPRESSION: Findings suggestive of gynecomastia. ASSESSMENT CATEGORY: BIRADS Category 2: Benign. A letter regarding these results will be sent to the patient by the facility within 30 days. Electronically Signed: Praveen Gallardo MD at 11:12 EST ,
--- NOTE | 2023-08-31 09:59 | BI_ITS ---
MAMMOGRAPHY - BILATERAL DIAGNOSTIC REASON FOR EXAM: Male, 23 years old. Bilateral breast lumps. Pain in the right breast. Patient is using testosterone. PERTINENT HISTORY: Non-contributory. TECHNIQUE: Digital bilateral breast adilia (3D mammographic acquisition) in the CC and MLO projections. 2-D mediolateral oblique (MLO) and craniocaudad (CC) views of both breasts were obtained. CAD: Full Field Digital Mammography with Computer Added Detection was performed. COMPARISON: None. Baseline examination. FINDINGS: Breast Composition: The breasts are almost entirely fatty. There are no dominant masses or suspicious calcifications. There is asymmetrical thickening of the right pectoralis major muscle. Increased density in the left breast as compared to the right side. No definite masses seen. Correlation with ultrasound is recommended. No other significant abnormalities are identified. BI/DIAG MAMM W/CAD, BILAT IMPRESSION: No mass lesion is seen. Asymmetrical density where more tissue is seen in the left breast as compared to the right side. Correlation with ultrasound is recommended. Prominent right pectoralis muscle. ASSESSMENT CATEGORY: BIRADS Category 0: Incomplete. Need additional imaging evaluation. A letter regarding these results will be sent to the patient by the facility within 30 days. Approximately 10% of breast cancers are not detected by mammography. A normal mammogram should not delay biopsy of a clinically suspicious abnormality. Electronically Signed: Praveen Gallardo MD at 11:09 EST ,
--- OUTSIDE RECORDS SUMMARY | 2023-08-31 10:08 | XMS RPT_ITS | CCD ---
Author Name Unknown Address [facility] [place] [address] Organization [facility] Care Team Providers Care Agriculture Inspector Name Role Phone ANITA PARRISH Unavailable Unavailable SELF, REFERRED Unavailable Unavailable [facility] Un available Unavailable NBA ROSALES Attending [...] 06-02-2022 Emergency department patient visit NBA ROSALES [facility] Start: 06-29-2017 End: 06-29-2017 Ambulatory ANITA VILLATORO [facility] Payers Date Payer Category Payer Private Health Insurance [id number] Unknown [id number] Progress note 04-23-2021 Note Date & Type Note Facility 04-23-2021 Note HNO ID: [id number] Author: Alem Sheth RN Service: ? Author Type: ? Type: Progress Notes Filed: 04/23/2021 11:45 AM Note Text: Post Void Residual completed on patient. 35 mL residual volume remaining. Yosef Nugent PA-C notified. Alem Sheth RN [facility] Progress note 04-23-2021 Note Date & Type Note Facility 04-23-2021 Note HNO ID: [id number] Author: Yosef Nugent PA-C Service: ? Author Type: Physician Immigration Coordinator Type: Progress Notes Filed: 04/23/2021 11:45 AM [...] with Friends and Family: ? ? Attends [employer] Services: ? ? Active Member of Clubs [...] and care coordinatio (more content not included)... [facility] Summary Purpose Family History No Family History [...] DATE CREATED AUTHOR AUTHOR'S ORGANIZ ATION 08/30/2021 [facility] DATE CREATED AUTHOR AUTHOR'S ORGANIZ ATION 06/02/2022 [facility] FOR RECORDS PERTAINING TO PATIENTS WHO ARE [...] BE BASED ON THE PRIMARY CLINICAL RECORDS. [employer] [facility]. provides no warranty or guarantee of the accuracy or completeness of information in this document.
== END | disposition home or self-care (01) ==
PROVIDERS: PCP Family Medicine; Referring Provider Family Medicine; Visit Provider Family Medicine
DX: N62 Hypertrophy of breast (principal)
CPT/HCPCS: 76642; 77062; 77066; G0279

== ENCOUNTER → 2023-09-05 | Outpatient (CLI) | payer OTHER, SELFPAY ==
--- NOTE | 2023-09-05 10:54 | MRI_ITS ---
STUDY: MRI BRAIN WITH AND WITHOUT CONTRAST REASON FOR EXAM: Male, 23 years old. rule out pituitary mass TECHNIQUE: Standardized multiplanar fat and water weighted pulse sequences were obtained. IV 17cc clariscan was administered for the contrast portion of the examination. COMPARISON: None. FINDINGS: Normal size of the ventricles and extra-axial spaces for the patient''s age. Normal white matter tracts of the supratentorial brain. Normal bilateral basal ganglia. Normal thalami. There is no extra-axial fluid accumulation. Normal flow voids within the major intracranial circulation suggesting patency by spin echo criteria. Normal venous enhancement. There is no enhancing intra-axial or extra-axial abnormality. The pituitary gland is normal in size. There is very slight heterogeneous enhancement following contrast administration and there are no well-defined hypoenhancing nodules,. Microadenoma is not entirely excluded. Recommend correlation with appropriate lab studies. Normal infundibular stalk, optic chiasm and hypothalamus. Normal tectal plate and pineal gland. Normal midbrain, alexa and medulla. Normal cerebellum. Normal basal cisterns. Normal bilateral temporal bones. Normal bilateral internal auditory canals. No demonstrated orbital abnormality, within the constraints of a routine brain study. Minor mucosal thickening of the bilateral maxillary and ethmoid sinuses. Normal calvarium and skull base. Normal visualized soft tissue structures. Normal visualized upper cervical spine. MRI/Brain W/WO Contrast IMPRESSION: Normal unenhanced and enhanced MRI of the brain. Normal sized pituitary with slight heterogeneous enhancement but without well-defined nodule. Clinical correlation recommended to exclude microadenoma Electronically Signed: Deon Ann MD at 17:18 EST ,
== END | disposition home or self-care (01) ==
LOC: MRI 10:50
PROVIDERS: PCP Family Medicine; Referring Provider Family Medicine; Visit Provider Family Medicine
DX: N62 Hypertrophy of breast (principal)
CPT/HCPCS: 70553; A9575

== ENCOUNTER → 2024-01-17 | Outpatient (CLI) | payer OTHER, SELFPAY ==
[2024-01-17 12:31] LABS: Follicle Stimulating Hormone < 0.2 mIU/mL; Luteinizing Hormone < 0.2 mIU/mL
[2024-01-23 13:08] LABS: Testosterone, Free 80.64 ng/dL (5.00-21.00); Testosterone, Total 1280 ng/dL (264-916)
== END | disposition home or self-care (01) ==
PROVIDERS: PCP Family Medicine; Referring Provider Nurse Practitioner Adult Health; Visit Provider Nurse Practitioner Adult Health
DX: E29.1 Testicular hypofunction (principal)
CPT/HCPCS: 36415; 83001; 83002; 84402; 84403

== ENCOUNTER 2024-11-15 18:15 | Emergency (ER) | payer OTHER, SELFPAY ==
[2024-11-15 18:16] VITALS: BP 120/71; PULSE 71; RESP 15; TEMP 36.6; O2SAT 99; BMI 26.8
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
[2024-11-15 19:15] VITALS: BP 112/62; PULSE 55; RESP 18; TEMP 37.9; O2SAT 100
[2024-11-15 19:15] LABS: Absolute Lymphocyte Count 2.05 X10^3/uL (0.83-4.51); Absolute Neutrophil Count 2.9 X10^3/uL (2.0-7.7); Basophil# 0.01 X10^3/uL; Basophil% 0.2 % (0-1); Eosinophil# 0.08 X10^3/uL; Eosinophils% 1.5 % (0-5); Hematocrit 40.7 % (40-54); Hemoglobin 14.7 g/dL (13.0-16.5); Lymphocyte # 2.05 X10^3/ul (0.83-4.51); Lymphocyte % 38.1 % (19-41); Mean Corp Hgb Conc 36.1 g/dL (32-36); Mean Corpuscular Hgb 30.8 pg (27.0-32.0); Mean Corpuscular Volume 85.3 fL (80-94); Mean Platelet Vol. 8.8 fl (6.2-12.0); Monocyte# 0.35 X10^3/uL; Monocyte% 6.5 % (0-10); NRBC Flagged by Analyzer 0 % (0-5); Neutrophil # 2.89 X10^3/uL (2.7-7.7); Neutrophil % 53.7 % (47-70); Platelet Count 241 K/mm3 (150-450); RBC Distribution Width CV 12.1 % (11.6-14.6); RBC Distribution Width SD 37.6 fl (35.1-43.9); Red Blood Count 4.77 M/mm3 (4.6-6.2); White Blood Count 5.4 K/mm3 (4.4-11.0)
--- NOTE | 2024-11-15 19:15 | ED.RN ---
per report, dr horner gave verbal order for no sitter
[2024-11-15 19:47] LABS: ALB/GLOB Ratio 1.7 RATIO (0.9-2.4); AST(SGOT) 23 U/L (<=37); Alanine Aminotransfer ALT/SGPT 10 U/L (<=46); Albumin, Serum 4.6 g/dL (3.5-5.0); Alkaline Phosphatase 60 U/L (40-129); Anion Gap 10 (5-15); BUN 14 mg/dL (4-19); BUN/Creat Ratio 15.1 RATIO (10-20); Calcium,Total 9.3 mg/dL (7.6-11.0); Chloride 106 mmol/L (98-108); Creatinine, Serum 0.94 mg/dL (0.70-1.20); EST Glomerular Filtration Rate 117 (>60); Globulin 2.7 g/dL (2.2-4.2); Glucose 93 mg/dL (70-99); Potassium 3.8 mmol/L (3.3-5.1); Protein, Total 7.2 g/dL (5.9-8.4); Sodium Level 141 mmol/L (133-145); Total Bilirubin 0.63 mg/dL (0.00-1.30)
[2024-11-15 19:48] LABS: Alcohol, Blood (Medical)-Serum < 10.1 mg/dL (<=10.0)
[2024-11-15 19:54] LABS: Amphetamine Urine NEGATIVE (<1000 ng/mL); Barbiturate Urine NEGATIVE (< 200 ng/mL); Benzodiazepine Urine NEGATIVE (< 200 ng/mL); Buprenorphine Urine NEGATIVE (< 200 ng/mL); Cocaine Urine NEGATIVE (< 300 ng/mL); Fentanyl, Urine NEGATIVE; Methadone Urine NEGATIVE (< 300 ng/mL); Opiates Urine NEGATIVE (< 300 ng/mL); Oxycodone, Urine NEGATIVE (< 100 ng/mL); PCP Urine NEGATIVE (< 25 ng/mL); THC Urine PRESUMPTIVE POSITIVE (< 50 ng/mL)
[2024-11-15 19:56] LABS: Valproic Acid (Depakene) Level < 3 ug/mL (50-100)
[2024-11-15 20:00] VITALS: BP 119/78; PULSE 91; RESP 18; O2SAT 98
[2024-11-15 21:00] VITALS: BP 118/70; PULSE 80; RESP 18; O2SAT 99
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
--- NOTE | 2024-11-15 22:23 | CM.ED ---
Social work Patient filled out an [facility] for [facility] to be able to talk with patient's grandparents, Shin and Hilary Barros, about patient's presentation and whole medical record. This was added to patient's paper chart to be scanned in. After discussion with Dr. García, it was decided to obtain placement options. This SW expressed this need to patient and patient expressed being disappointed with SW and doctor decision. Patient expressed desire to leave and became angry when told that was not an option. SW got [facility] security in an effort to diffuse the situation. Updated grandparents, Shin and Hilary, who had arrived to visit. Handoff to [facility] (ph: [phone]) and referral packet faxed (f: ). Ely Hernández, RN TRAUMA, CUSTOMER EXPERIENCE MANAGER
--- NOTE | 2024-11-15 23:52 | ED.RN ---
pt states he takes 1500mg depakote qhs. fill history indicates most recent rx was for 500mg tid, but pt states he is taking it all at once qhs. dr connor timmons.
[2024-11-16] MEDS: Divalproex (ER) 500 MG Tablet 1500 MG PO (00:45)
[2024-11-16 01:00] VITALS: BP 102/47; PULSE 52; RESP 16; TEMP 36.6; O2SAT 97
[2024-11-16 07:36] VITALS: BP 110/68; PULSE 52; RESP 16; TEMP 37; O2SAT 100
[2024-11-16 07:38] VITALS: BP 110/58; PULSE 52; RESP 16; TEMP 37; O2SAT 100
[2024-11-19 13:08] LABS: Lamotrigine (Lamictal) Level < 1.0 ug/mL (2.0-20.0)
== END 2024-11-16 07:51 ==
PROVIDERS: Emergency Provider Emergency Medicine; PCP Family Medicine; Visit Provider Emergency Medicine
DX: F60.3 Borderline personality disorder (principal); F31.9 Bipolar disorder, unspecified; G40.909 Epilepsy, unspecified, not intractable, without status epilepticus; Z79.899 Other long term (current) drug therapy; J45.909 Unspecified asthma, uncomplicated; Z79.51 Long term (current) use of inhaled steroids; F17.290 Nicotine dependence, other tobacco product, uncomplicated
CPT/HCPCS: 80053; 80164; 80307; 82077; 82542; 85025; 99284